=== PATIENT | male | born 1985 | race Caucasian/White ===

== ENCOUNTER → 2020-04-16 | Outpatient (CLI) | payer BC, OTHER ==
[~2020-04-16] MED LIST: NORCO 5-325 TA1 EACH PO; VALTREX PO; ZOFRAN ODT4 MG PO
== END ==
LOC: RAD 13:34
PROVIDERS: ATTEND Physician Assistant
DX: L40.0 Psoriasis vulgaris (principal); Z79.899 Other long term (current) drug therapy

== ENCOUNTER → 2021-08-16 | Outpatient (CLI) | payer BC, OTHER | LOC: RAD 11:54 | PROVIDERS: ATTEND Physician Assistant | DX: L40.0 Psoriasis vulgaris (principal); Z79.899 Other long term (current) drug therapy ==